=== PATIENT | male | born 1960 | race Caucasian/White ===

== ENCOUNTER 2016-11-25 02:00 | Emergency (ER) | payer MEDICAID ==
[~2016-11-25] VITALS: Ht 167.6 cm; Wt 71.7 kg
[2016-11-25] MEDS ORDERED: CLINDAMYCIN PMX 900MG/50ML 50 ML IV ONE (02:30)
[2016-11-25] MEDS ORDERED: SODIUM CHLORIDE FLUSH 10ML SYR IVF ONE (02:30)
[2016-11-25] MEDS ORDERED: SODIUM CHLORIDE 0.9% 1,000ML IVBOLUS ONE (02:30)
[2016-11-25] MEDS ORDERED: CLINDAMYCIN PMX 900MG/50ML 50 ML ONE (02:38)
[2016-11-25] MEDS ORDERED: LIDOCAINE 1%, 20ML ONE (02:49)
[2016-11-25 02:50] LABS: BLOOD UREA NITROGEN 13 mg/dL (7-18)
[2016-11-25] MEDS ORDERED: LIDOCAINE 1%, 20ML SQ ONE (03:00)
[2016-11-25 03:57] VITALS: BP 133/87
== END 2016-11-25 04:00 | disposition home or self-care (01) ==
LOC: ED 03:52
DX: L02.414 Cutaneous abscess of left upper limb (principal); Z90.49 Acquired absence of other specified parts of digestive tract
CPT/HCPCS: 26010; 36415; 73130; 80048; 85025; 85651; 86141; 96361; 96374; 99285; J3490; J7030

== ENCOUNTER 2017-08-19 19:31 | Emergency (ER) | payer MEDICAID ==
[~2017-08-19] VITALS: Ht 170.2 cm; Wt 66.3 kg
[2017-08-19 19:33] VITALS: BP 119/83
[2017-08-19] MEDS ORDERED: HYDROcodone/APAP 5/325 TABLET PO ONE (20:00)
[2017-08-19] MEDS ORDERED: HYDROcodone/APAP 5/325 TABLET ONE (20:09)
== END 2017-08-19 20:39 | disposition home or self-care (01) ==
LOC: ED 20:30
DX: M13.111 Monoarthritis, not elsewhere classified, right shoulder (principal); F17.210 Nicotine dependence, cigarettes, uncomplicated; Z90.49 Acquired absence of other specified parts of digestive tract; Z88.0 Allergy status to penicillin
CPT/HCPCS: 99284